=== PATIENT | female | born 1955 | race Caucasian/White ===

== ENCOUNTER → 2018-09-18 | Day surgery (SDC) | payer OTHER, MEDICARE ==
[~2018-09-18] MED LIST: ACETAMINOPHEN 1,000 MG/100 ML BTL IV ONE; BUPIVACAINE 0.5% (5MG/ML) PF 30ML VIAL IVP ONE; BUPIVACAINE 0.5% W/EPI MPF 30 ML VIAL IVP ONE; BUPIVACAINE LIPOSOME/PF 133MG/10ML VIAL IV ONE; CEFAZOLIN 2 Gram 2 GM/50 ML BAG IVPB ONE; DEXAMETHASONE 4 MG/ML 1ML VIAL IVP ONE; LIDOCAINE 2% MDV (20MG/ML) 20ML VIAL IV ONE; METHYLPREDNISOLONE 40MG/VIAL IM ONE; MIDAZOLAM HCL 2MG/2ML VIAL IV ONE; MORPHINE SULFATE PF 10MG/10ML VIAL IV ONE; ONDANSETRON HCL IV 4 MG/2 ML VIAL IVP ONE; PROPOFOL 10 MG/ML VIAL IV ONE; SCOPOLAMINE 1 PATCH TDSY TD ONE; SEVOFLURANE 250 ML INH ONE; VANCOMYCIN HCL 1,000 MG in DEXTROSE 5 % IN WATER 250 ML IVPB ONE
--- NOTE | 2018-09-19 08:50 | Operative Note ---
DATE OF SURGERY: 09/18/2018 PREOPERATIVE DIAGNOSIS: Adhesive capsulitis, left shoulder. POSTOPERATIVE DIAGNOSES: 1. Adhesive capsulitis, left shoulder. 2. Adhesive bursitis, left shoulder. OPERATION: 1. Left shoulder subacromial bursectomy. 2. Left shoulder manipulation under anesthesia. 3. Left shoulder intraarticular injection. Staff Surgeon: Kaiden Agosto MD Anesthesia: General. Preparation: Chloraprep. Individual Considerations: None. PROCEDURE: The patient was taken to the operating room and placed supine on the operating room table. She had a successful induction of general anesthetic. She was then placed in a semi-seated beach chair position. Her left arm and shoulder were prepped and draped in the usual fashion. The patient had obvious adhesive capsulitis. I brought her to about 90 degrees of abduction and was able to easily manipulate her into full abduction and rotation. There was obviously palpable and audible lysis of adhesions when I did this. I then attempted to place a posterior portal for arthroscopy. It was very tight. I could barely even get a needle in there, so at this point I abandoned it and waited to see if I could get the portal in open. The patient's previous anterior incision was used, the distal 2/3. Skin was infiltrated with 0.5% Marcaine with epinephrine prior. Sharp dissection carried down through skin and subcutaneous tissues. Small veins were coagulated with a Bovie. I split the deltoid anteriorly and then entered the subacromial space. The space was adhesive with adhesive bursitis. I freed this up with basically finger dissection. Rotator cuff was intact. Resected unstable areas of bursa. I then attempted to place the blunt-tipped inflow cannula into the joint by direct palpation posteriorly but it was just too narrow and too tight. I thought I would do damage, so I just elected to not do the arthroscopic portion of the procedure. At this point, after irrigation, I placed a 22-gauge needle into the joint by basically feeling it and then placing the needle into the joint. After irrigation, the anterior deltoid interval was closed with a running #1 Vicryl, subcu was closed with 2-0 Vicryl, skin was closed running 3-0 Stratafix. At this point, I injected 5 mL of 0.5% Marcaine with epinephrine along with 40 mg of Depo-Medrol into the joint itself through the previously placed 22-gauage needle. Then through a sterile 18-gauage needle, I placed about 15 mL of 0.5% Marcaine with epinephrine along with 10 mg of morphine and 40 mg of Depo-Medrol into the subacromial space. A sterile bulky compressive sling dressing was applied. The patient tolerated procedure well. Needle and sponge counts were correct. Estimated blood loss was minimal. She was taken back to recovery in good condition. There were no complications. JOHANN
== END | disposition home or self-care (01) ==
LOC: SUR 11:26
PROVIDERS: ATTEND Orthopaedic Surgery
DX: M75.02 Adhesive capsulitis of left shoulder (principal); I10 Essential (primary) hypertension; E78.00 Pure hypercholesterolemia, unspecified; K21.9 Gastro-esophageal reflux disease without esophagitis
CPT/HCPCS: 23700; 20610; 01620; 64415; 93005; J2405; J3370; C9290; 76942; J1030; J7060

== ENCOUNTER 2019-05-28 06:56 | Day surgery (SDC) | payer MEDICARE, OTHER ==
[~2019-05-28 06:56] MED LIST changes: -ACETAMINOPHEN 1,000 MG/100 ML BTL IV ONE; -BUPIVACAINE 0.5% (5MG/ML) PF 30ML VIAL IVP ONE; -BUPIVACAINE 0.5% W/EPI MPF 30 ML VIAL IVP ONE; -BUPIVACAINE LIPOSOME/PF 133MG/10ML VIAL IV ONE; -DEXAMETHASONE 4 MG/ML 1ML VIAL IVP ONE; +FAMOTIDINE 20MG TABLET PO ONE; -LIDOCAINE 2% MDV (20MG/ML) 20ML VIAL IV ONE; -METHYLPREDNISOLONE 40MG/VIAL IM ONE; +METOCLOPRAMIDE 10 MG TABLET PO ONE; -MIDAZOLAM HCL 2MG/2ML VIAL IV ONE; -MORPHINE SULFATE PF 10MG/10ML VIAL IV ONE; -ONDANSETRON HCL IV 4 MG/2 ML VIAL IVP ONE; -PROPOFOL 10 MG/ML VIAL IV ONE; -SEVOFLURANE 250 ML INH ONE; -VANCOMYCIN HCL 1,000 MG in DEXTROSE 5 % IN WATER 250 ML IVPB ONE
[2019-05-28] MEDS ORDERED: BUPIVACAINE LIPOSOME/PF 133MG/10ML VIAL IV ONE (06:57)
[2019-05-28] MEDS ORDERED: MIDAZOLAM HCL 2MG/2ML VIAL IV ONE (06:57)
[2019-05-28] MEDS ORDERED: GLYCOPYRROLATE 0.2 MG/ML ML IV ONE (06:57)
[2019-05-28] MEDS ORDERED: PROPOFOL 10 MG/ML VIAL IV ONE (06:57)
[2019-05-28] MEDS ORDERED: KETAMINE HCL 100MG/1ML VIAL INJ ONE (06:57)
[2019-05-28] MEDS ORDERED: BUPIVACAINE 0.25% MPF 30ML VIAL IVP ONE (06:57)
[2019-05-28] MEDS ORDERED: ONDANSETRON HCL IV 4 MG/2 ML VIAL IVP ONE (06:57)
[2019-05-28] MEDS ORDERED: DEXAMETHASONE 4 MG/ML 1ML VIAL IVP ONE ×2 (06:57)
[2019-05-28] MEDS ORDERED: RINGERS SOLUTION,LACTATED 1,000 ML IV ONE ×2 (08:00→10:29)
[2019-05-28] MEDS ORDERED: METHYLPREDNISOLONE 40MG/VIAL IU ONE ×3 (09:50→10:15)
[2019-05-28] MEDS ORDERED: BUPIVACAINE 0.5% W/EPI MPF 30 ML VIAL SQ ONE (09:50)
[2019-05-28] MEDS ORDERED: MORPHINE SULFATE PF 10MG/10ML *10ML VIAL IU ONE (10:25)
[2019-05-28] MEDS ORDERED: KETOROLAC 30 MG/ML VIAL IVP ONE (11:28)
[2019-05-28] MEDS ORDERED: HYDROCODONE/APAP 7.5/325MG TABLET PO ONE (11:33)
--- NOTE | 2019-05-28 14:52 | Operative Note ---
DATE OF SURGERY: 05/28/2019 PREOPERATIVE DIAGNOSIS: Right shoulder rotator cuff tear. POSTOPERATIVE DIAGNOSES: 1. Diffuse synovitis right shoulder. 2. Complex glenohumeral labral tear anteriorly. 3. 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 4. Small tear of the rotator cuff. 5. Severe external impingement right shoulder. 6. Arthrosis right distal clavicle. OPERATION: 1. Repair of a chronically torn rotator cuff tear open. 2. Right shoulder arthroscopy with intraarticular debridement with complete synovectomy. 3. Right shoulder distal clavicle resection. 4. Right shoulder open acromioplasty, CA ligament resection, subacromial bursectomy. STAFF SURGEON: Kaiden Agosto MD FOLDER TIER: Mrs. Debra Franklin ANESTHESIA: Block with sedation. PREPARATION: Chloraprep. INDIVIDUAL CONSIDERATIONS: None. PROCEDURE: The patient was taken to the operating room, had a successful induction of an interscalene block. She was then placed in a semi-seated beach chair position and prepped and draped in the usual fashion and given IV sedation. Examination under anesthesia showed no instability. The patient had posterior portal identified for arthroscopy. Skin was infiltrated with 0.5% Marcaine with epinephrine prior. An 18-gauge spinal needle was placed in the joint, and the joint was inflated with normal saline. A stab wound was made, and a blunt-tipped trocar for the scope was easily placed in the joint. The joint was inflated with normal saline. An anterior accessory portal was then made just inferior to the intact long head of the biceps tendon in a retrograde fashion with a Wissinger valentin. Inside the joint, there was diffuse synovitis. Grade 3 changes were seen on the humeral head and glenoid. Fraying of the anterior labrum extending up to the long head which was otherwise intact. Subscap was normal. The synovitis was debrided and the labral instability was debrided and the loose cartilage on the grade 3 changes on the glenoid and in the humeral head were debrided. After irrigation, portals were closed with kurt. The patient had an anterior approach to the subacromial space and distal clavicle. Skin was again infiltrated with 0.5% Marcaine with epinephrine prior. Sharp dissection carried down through skin and subcutaneous tissues. Small veins were coagulated with a Bovie. An anterior deltoid interval was developed. Care was taken not to split the deltoid more than about 4 cm distal to the anterior tip of the acromion to prevent injury to the axillary nerve. Once in the subacromial space, there was actually a ku that was consistent with a tear. She had a fairly impressive downsloping acromion and large spurs at the AC joint. The deltoid was then taken subperiosteally off the anterior aspect of the acromion, over the top of the intact CA ligament, and off the anterior aspect of the distal clavicle. Distal clavicle was resected with an oscillating saw. CA ligament was resected with a Bovie. The patient had a fairly impressive downsloping acromion with a knife edge anteriorly. I went ahead and did an acromioplasty taking about 6-7 mm tapering towards posteromedially to include the spurs at the AC joint. The undersurface was then smoothed with a rasp. A very thick bursa was debrided out. I now had a good look at the rotator cuff. There was an area I would say just near the AC joint where the anterior aspect of the acromion was knife edge with about 1 cm tear in the tendinous area. I was able to actually freshen this up and fix it with Vicryl buried knot sutures [id number]. I now put the shoulder through a full range of motion to ensure no further impingement. After irrigation, the deltoid was reattached to the remaining acromion with multiple interrupted #2 Vicryl going directly through the bony acromion. I then placed a needle through the skin and into the joint itself, which was a 22-gauge spinal needle. The periosteal cuff of the distal clavicle was closed with running #2 Vicryl. Anterior deltoid interval was closed with running #1 Vicryl. Subcu was closed with 2-0 plus Vicryl and skin was closed with 3-0 quill. I then placed a needle into the subacromial space. In the subacromial space needle, I placed about 15 mL of 0.5% Marcaine with epinephrine along with 10 mg of morphine. The needle I had previously placed in the joint was injected with about 5 mL of 0.5% Marcaine with epinephrine and 40 mg of Depo-Medrol. A sterile bulky compressive dressing and sling were applied. He tolerated the procedure well. Needle and sponge counts were correct. Estimated blood loss was minimal. She was taken back to recovery in good condition. There were no complications. JOHANN
== END 2019-05-28 12:15 | disposition home or self-care (01) ==
LOC: SUR 06:56
PROVIDERS: ATTEND Orthopaedic Surgery
DX: M75.101 Unspecified rotator cuff tear or rupture of right shoulder, not specified as traumatic (principal); S43.431A Superior glenoid labrum lesion of right shoulder, initial encounter; M65.811 Other synovitis and tenosynovitis, right shoulder; M75.41 Impingement syndrome of right shoulder; M19.011 Primary osteoarthritis, right shoulder; M94.211 Chondromalacia, right shoulder; I10 Essential (primary) hypertension; E78.00 Pure hypercholesterolemia, unspecified; K21.9 Gastro-esophageal reflux disease without esophagitis; E03.9 Hypothyroidism, unspecified; J45.909 Unspecified asthma, uncomplicated
CPT/HCPCS: 23412; 29821; 29822; 23130; 23120; 01610; 64415; J1885; J2405; J0690; C9290; J3490; 76942; J1030; J7120

== ENCOUNTER 2019-07-16 09:49 | Day surgery (SDC) | payer OTHER ==
[~2019-07-16 09:49] MED LIST changes: +ACETAMINOPHEN 1,000 MG/100 ML BTL IVPB ONE; -CEFAZOLIN 2 Gram 2 GM/50 ML BAG IVPB ONE; -FAMOTIDINE 20MG TABLET PO ONE; -METOCLOPRAMIDE 10 MG TABLET PO ONE
[2019-07-16] MEDS ORDERED: PROPOFOL 10 MG/ML VIAL IV ONE (09:50)
[2019-07-16] MEDS ORDERED: *PACU ONLY* KETAMINE HCL 10 MG/ML (20ML) VIAL IV ONE (09:50)
[2019-07-16] MEDS ORDERED: RINGERS SOLUTION,LACTATED 1,000 ML IV ONE (10:30)
[2019-07-16] MEDS ORDERED: METHYLPREDNISOLONE 40MG/VIAL IU ONE (12:12)
[2019-07-16] MEDS ORDERED: BUPIVACAINE 0.5% W/EPI MPF 30 ML VIAL SQ ONE (12:12)
[2019-07-16] MEDS ORDERED: KETOROLAC 30 MG/ML VIAL IVP ONE (12:36)
[2019-07-16] MEDS ORDERED: ONDANSETRON HCL IV 4 MG/2 ML VIAL IVP ONE (12:36)
[2019-07-16] MEDS ORDERED: FENTANYL PF 100MCG/2ML VIAL IVP ONE (13:10)
--- NOTE | 2019-07-17 07:41 | Operative Note ---
DATE OF SURGERY: 07/16/2019 PREOPERATIVE DIAGNOSIS: Adhesive capsulitis of the right shoulder. POSTOPERATIVE DIAGNOSIS: Very limited adhesive capsulitis of the right shoulder. OPERATION: 1. Right shoulder manipulation. 2. Right shoulder injection. STAFF SURGEON: Kaiden Agosto MD ANESTHESIA: General. PREPARATION: Chloraprep. INDIVIDUAL CONSIDERATIONS: None. PROCEDURE: The patient was given IV sedation and after IV sedation, I was able to manipulate her shoulder freely. There were very limited adhesions present during the manipulation. I then prepped her anterior shoulder and injected with 15 mL of 0.5% Marcaine with epinephrine and 40 mg of Depo-Medrol through a sterile 22-gauge spinal needle. A Band-Aid was applied. Her anesthesia was reversed and she was taken to recovery in good condition. There were no complications. JOHANN
== END 2019-07-16 13:16 | disposition home or self-care (01) ==
LOC: SUR 09:49
PROVIDERS: ATTEND Orthopaedic Surgery
DX: M75.01 Adhesive capsulitis of right shoulder (principal); I10 Essential (primary) hypertension; E03.9 Hypothyroidism, unspecified; E78.00 Pure hypercholesterolemia, unspecified; K21.9 Gastro-esophageal reflux disease without esophagitis; J45.909 Unspecified asthma, uncomplicated
CPT/HCPCS: J1030; J1885; J2405; J7120